=== PATIENT | female | born 1960 | race Caucasian/White ===

== ENCOUNTER 2025-04-17 21:14 | Emergency (ER) | payer OTHER, SELFPAY ==
[2025-04-17 21:35] VITALS: BP 158/102
[2025-04-17 22:20] LABS: Hematocrit 40.4 % (37.0-47.0); Mean Corp Hgb Conc. 34.7 g/dL (33.0-37.0); Mean Corpuscular Hgb 29.1 pg (27.0-31.0); Mean Platelet Volume 11.1 fL (7.4-10.4); Platelet Count 312 10^3/uL (130-400); Red Blood Cell Count 4.81 10^6/uL (4.20-5.40); Red Cell Dist. Width 14.1 % (11.5-14.5); White Blood Cell Count 11.6 10^3/uL (4.8-10.8)
[2025-04-17 22:21] LABS: Urine Albumin Negative (Neg - Trace); Urine Bilirubin Negative (Negative); Urine Character Clear (Clear); Urine Color Yellow; Urine Glucose Negative (Negative); Urine Ketone Negative (Negative); Urine Leukocyte Negative (Negative); Urine Nitrite Negative (Negative); Urine Occult Blood Negative (Negative); Urine Specific Gravity 1.015 (<1.030); Urine Urobilinogen Negative (Neg - 1+)
[2025-04-17 22:49] LABS: ALT (SGPT) 49 U/L (0-35); AST (SGOT) 34 U/L (14-36); Albumin 4.4 g/dl (3.5-5.0); Alkaline Phosphatase 79 U/L (38-126); Blood Urea Nitrogen 24 mg/dl (7-17); Calcium 9.7 mg/dl (8.4-10.2); Carbon Dioxide 24 mmol/L (22-30); Chloride 106 mmol/L (98-107); Glucose 137 mg/dl (70-99); Sodium 138 mmol/L (135-145); Total Bilirubin 0.4 mg/dl (0.2-1.3); Total Protein 8.2 g/dl (6.3-8.2); eGFR > 60.00
[2025-04-17 22:54] LABS: % Basophils 0.8 % (0-2); % Eosinophils 3.4 % (0-6); % Immature Granulocytes 0.5 % (0-0.5); % Lymphocytes 35.2 % (20.5-51.1); % Monocytes 10.7 % (1.7-9.3); % Neutrophils 49.4 % (42.2-75.2); Absolute Basophils 0.1 10^3/uL (0-0.2); Absolute Eosinophils 0.4 10^3/uL (0-0.7); Absolute Immature Granulocytes 0.1 10^3/uL (0-0.05); Absolute Lymphocytes 4.1 10^3/uL (1.2-3.4); Absolute Monocytes 1.2 10^3/uL (0.1-0.6); Absolute Neutrophils 5.8 10^3/uL (1.4-6.5); Nucleated Red Blood Cells % 0 %
[2025-04-17 23:37] VITALS: BP 149/59
[2025-04-17 23:42] VITALS: BMI 43.7
[2025-04-18] VITALS: BP 131/59
--- NOTE | 2025-04-18 00:18 | ED.GENMED ---
History of Present Illness
General
Chief Complaint: Dizziness
Source: patient
Time Seen by Provider: 04/17/25 23:49
History of Present Illness
History of Present Illness:
Note:
CHIEF COMPLAINT(S)
Dizziness and respiratory symptoms.
HISTORY OF PRESENT ILLNESS
The patient is a 64-year-old female presenting with symptoms of dizziness and respiratory issues. She reported feeling significantly ill yesterday but noted improvement today. Recently experienced a cold sweat, feeling unwell, and notes of a
persistent cough, describing it as 'weasy.' Dizziness was characterized not as vertigo but more as an off-balance sensation with visual disturbances, occurring upon standing and lasting only a few seconds. Patient does note dealing with URI-like
symptoms going back about 2 months ago, had been on antibiotics and was improved for about a month but as recently as beginning of this week started with symptoms again, was given doxycycline and an inhaler with steroid component which she states is
starting to make her feel better already although does note sinus congestion and bilateral ear pressure sensation. Examination of vital signs showed a transiently elevated blood pressure which normalized upon re-evaluation.
SOCIAL DETERMINANTS AFFECTING HEALTH
No social determinants discussed.
REVIEW OF SYSTEMS
- Respiratory: Persistent cough, congestion, predominantly more on the right side.
- Ears, Nose, and Throat: Sinus congestion detected, more severe on the right side.
- Neurological: Dizziness, visual 'weirdness' upon standing.
Past History
Past History
ED Past Medical History: HTN
ED Past Surgical History: None
Social History
Tobacco: Non-smoker
Alcohol: Occasional
Drug: None
Personal:
Living: with family
Review of Systems
Review of Systems
All Other Systems: ROS reviewed and negative except as documented in HPI and ROS
Phy Exam
Physical Exam
Physical Exam:
GENERAL: Alert , in no apparent distress
HEAD: NCAT
EYE: clear conjunctiva
NECK: Supple
ENT: o/p clr, mmm.
CARDIAC: Regular rate and rhythm .
LUNGS: Clear breath sounds bilaterally, no acute respiratory distress, no rales/rhonchi however while coughing patient did have slight wheeze that cleared
ABDOMEN: Soft, without focal tenderness, no r/g, no cvat
NEUROLOGICAL: Alert and oriented, no focal neuro deficits, ambulates with steady gait
SKIN: Warm and dry, skin intact.
MUSCULOSKELETAL: No edema, well perfused.
PSYCH: Normal and appropriate interaction.
Scores
Heart Failure Risk
Heart Failure Risk Score: Not Applicable
Heart Score for Chest Pain Patients
STEMI patient?: Not applicable
Withdrawal Assessment of Alcohol
Withdrawal Assessment Completed?: Not applicable
Sepsis
Sepsis Screening
Sepsis Assessment: Sepsis Ruled Out
Sepsis Screen
Sepsis Screen: Sepsis Ruled Out
Date: 04/18/25
Time: 00:49
Course
Orders/Labs/Results
Orders:
Orders
04/17/25 21:41
Electrocardiogram (*1) Urgent
Reason for Study: Other
Other Reason for Exam: Possible Stroke
Cardiac Monitoring- Treatment ONCE
EKG- Treatment ONCE
Vital Signs As Directed
Frequency: Other
04/17/25 22:04
Complete Blood Count/With Diff Urgent
Comprehensive Metabolic Panel Urgent
Urinalysis Reflex To Culture Urgent
Date Specimen was Collected: 04/17/25
Time Specimen was Collected: 21:41
04/17/25 22:38
Chest [CR Chest - 2 Views ] Urgent
Comment:
Reason For Exam: cough
Abnormal Lab Results
04/17/25
22:04
WBC 11.6 H 10^3/uL
(4.8-10.8)
MPV 11.1 H fL
(7.4-10.4)
Abs Immat Gran (auto) 0.1 H 10^3/uL
(0-0.05)
Absolute Lymphs (auto) 4.1 H 10^3/uL
(1.2-3.4)
Absolute Monos (auto) 1.2 H 10^3/uL
(0.1-0.6)
Monocytes % 10.7 H %
(1.7-9.3)
BUN 24 H mg/dl
(7-17)
Glucose 137 H mg/dl
(70-99)
ALT 49 H U/L
(0-35)
04/17/25 22:04
04/17/25 22:04
Vital Signs
Initial and Last Documented VS:
Initial Vital Signs
Temp Pulse Resp BP Pulse Ox
98.4 F 78 16 158/102 96
04/17/25 21:35 04/17/25 21:35 04/17/25 21:35 04/17/25 21:35 04/17/25 21:35
Last Documented Vital Signs
Temp Pulse Resp BP Pulse Ox
98.4 F 70 17 149/59 97
04/17/25 21:35 04/17/25 23:45 04/17/25 23:45 04/17/25 23:37 04/18/25 00:19
MDM/Problems Addressed
Differential Diagnosis Includes:
The Differential Diagnosis includes, in no particular order and is not limited to:
1. Benign Paroxysmal Positional Vertigo (BPPV)
2. Labyrinthitis
3. Sinusitis
4. Upper Respiratory Infection
5. Acute Viral Rhinitis
6. Anemia
7. Electrolyte Imbalance
8. Transient Ischemic Attack (TIA)
9. HTN urgency
MDM/Problems Addressed:
1. Patient reports that most of her symptoms do seem to be resolved and she feels well and ultimately would like to be discharged home. Given her recent URI symptoms I do suspect possibility of inner ear cause of mild vertigo. No signs of
bacterial.
2. The patient may benefit from an oral steroid to address sinus congestion. Patient declines this medication at this time and states will follow-up with primary care provider next week
3. Consider intranasal Flonase for sinus relief and aurg-vja-[id number] medications such as Claritin or Mame, avoiding formulations with pseudoephedrine to prevent blood pressure issues.
4. Follow up with the primary care physician is recommended to monitor symptoms.
5. If symptoms persist or worsen, including dizziness and imbalance, seek further evaluation.
*Radiology
Radiology exam reviewed: preliminary read by ED provider (No acute infiltrates or effusions)
*Pulse Oximetry
SaO2: 97
Oxygen Mode of Delivery: Room air
Patient hypoxic: no
*EKG
Heart Rate: 78
Rate: normal
Rhythm: sinus
QRS Pattern: left bundle branch block
*[employer] Interpretation
Rate: normal
Rhythm: sinus
*Critical Care Note
Total Time (30-74mins, 75-104mins- exclusive of procedures): Not Applicable
Comment
Comment:
Patient's EKG today did show a left bundle branch block however it was noted during a failed stress test in 2018 she had a left bundle branch block then as well. Patient had cardiac catheterization done in 2018 which showed normal coronary arteries
Patient Management
Social determinants of health affecting care: Strong social support
ED Attending Note
-
Portions of this chart may have been created with voice recognition software.� Occasional wrong word or��sound alike� substitutions may have occurred due to the inherent limitations of voice recognition software.
Discharge Plan
Departure
Patient Disposition: Home (Routine Discharge)
Date of Disposition: 04/18/25
Time of Disposition: 00:18
Patient with high blood pressure during this ER visit?: Yes
Discharge Problem:
Cough, Light-headedness, Sinus congestion
Instructions: Upper respiratory infection in adults - Discharge instructions
Prescriptions:
No Action
bisoprolol fumarate 5 MG tablet
5 mg PO DAILY
aspirin 81 MG tablet,chewable
81 mg PO DAILY
albuterol sulfate [Proventil HFA] 90 MCG/PUFF HFA aerosol inhaler
1 puff inhalation PRN PRN (Reason: wheezing)
biotin 1 MG capsule
1 mg PO DAILY
ascorbic acid (vitamin C) 500 MG capsule
500 mg PO DAILY
Glucosamine HCl 500 MG Tablet
500 mg PO DAILY
hydrochlorothiazide 12.5 MG capsule
12.5 mg PO DAILY
vitamin B complex 1 TAB tablet
1 tab PO DAILY
docosahexaenoic acid-epa 1 CAP capsule
1 tab PO DAILY
mometasone [Asmanex Twisthaler] 220 MCG aerosol powdr breath activated
1 puff inhalation Q12
Referrals:
UNKNOWN - PT DOES,NOT KNOW [Family Provider]
Interventions
Interventions:
*Risk Screen - Suicide Last Done: 04/17/25 21:35
*General Assessment Last Done: 04/18/25 00:46
*Neglect/Abuse Screening Last Done: 04/17/25 21:35
*Nursing Disposition Last Done: 04/18/25 00:46
ED- Neurological Assessment Last Done: 04/17/25 23:42
ED- Cardiac Assessment Last Done: 04/17/25 23:42
ED Swallowing Screen Last Done: 04/18/25 00:25
Discharge Date and Time
Print Language: [id number]
== END 2025-04-18 00:49 | disposition home or self-care (01) ==
LOC: EMR 21:14
PROVIDERS: Student in an Organized Health Care Education/Training Program; EMERGENCY PHYSICIAN Emergency Medicine
DX: R05.9 Cough, unspecified (principal); R42 Dizziness and giddiness; R09.81 Nasal congestion; I10 Essential (primary) hypertension
CPT/HCPCS: 99283; 71046; 80053; 81003; 85025; 93005